=== PATIENT | male | born 1990 | race Caucasian/White ===

== ENCOUNTER 2018-05-05 08:42 | Emergency (ER) | payer BC, SELFPAY ==
--- NOTE | 2018-05-05 10:23 | RAD ---
LEFT FOOT THREE VIEWS: HISTORY: A 27-year-old male with a history of left foot pain without trauma. FINDINGS/IMPRESSION: No fracture, dislocation, or other significant acute osseous abnormality. POS: C
== END 2018-05-05 09:21 | disposition home or self-care (01) ==
LOC: SCSER 08:42
DX: M72.2 Plantar fascial fibromatosis (principal)